=== PATIENT | female | born 1970 | race African-American/Black ===

== ENCOUNTER 2019-04-03 22:23 | Emergency (ER) | payer MEDICAID ==
[~2019-04-03] VITALS: Ht 175.3 cm; Wt 119.4 kg
[2019-04-03 23:32] LABS: Urine Bacteria NONE SEEN /hpf (None Seen); Urine Blood Negative /uL (Negative); Urine Specific Gravity 1.009 (1.001-1.035); Urine WBC 1 /hpf (0 - 5)
[2019-04-03 23:57] LABS: Basophils # (auto) 0 uL; Eosinophils # (auto) 0.1 uL; Hemoglobin 10.6 g/dL (12.2-16.2); Mean Corpuscular Hemoglobin 24.5 pg (28.0-32.0); Monocytes # (auto) 0.5 uL; Nucleated Red Blood Cells % 0.1 %
[2019-04-03 23:59] LABS: Basophils % (auto) 0.5 % (0.0-2.0); Eosinophils % (auto) 1.8 % (0.0-7.0); Hematocrit 33.4 % (36.0-46.0); Lymphocytes # (auto) 2.3 uL; Lymphocytes % (auto) 35.8 % (10.0-50.0); Mean Corpuscular Hgb Conc. 31.7 g/dL (32.0-36.0); Mean Corpuscular Volume 77.4 fL (80.0-100.0); Monocytes % (auto) 7.5 % (0.0-12.0); Neutrophils # (auto) 3.6 uL; Neutrophils % (auto) 54.4 % (37.0-80.0); Platelet Count (auto) 332 10^3/uL (140-450); Red Blood Cells 4.32 10^6/uL (4.0-5.20); Red Cell Distribution Width 15.5 % (11.8-14.3); White Blood Cell 6.5 10^3/uL (4.4-10.8)
[2019-04-04 00:13] LABS: INR 0.93 (0.9-1.15); Partial Thromboplastin Time 24.5 sec (23.64-32.05)
[2019-04-04 00:20] LABS: Albumin 3.4 g/dL (3.4-5.0); Anion Gap 7 (5-15); Blood Urea Nitrogen 8 mg/dL (7-18); Calcium 8.5 mg/dL (8.5-10.1); Carbon Dioxide 25 mmol/L (21-32); Chloride 108 mmol/L (98-107); Glucose 155 mg/dL (74-106); Potassium 3.7 mmol/L (3.5-5.1); Sodium 140 mmol/L (136-145)
[2019-04-04 00:22] LABS: Alanine Aminotransferase 33 U/L (13-56); Aspartate Aminotransferase 18 U/L (15-37); BUN/Creatinine Ratio 9.1; GFR African American 88 mL/min; GFR Non-African American 73 mL/min
[2019-04-04 00:26] LABS: Alkaline Phosphatase 70 U/L (45-117); Bilirubin, Total 0.2 mg/dL (0.2-1.0); Total Protein 7.6 g/dL (6.4-8.2)
[2019-04-04 07:00] VITALS: BP 121/68
== END 2019-04-04 09:06 | disposition home or self-care (01) ==
LOC: ER 22:23
DX: R07.89 Other chest pain (principal); R73.9 Hyperglycemia, unspecified; D50.9 Iron deficiency anemia, unspecified; F43.20 Adjustment disorder, unspecified; I10 Essential (primary) hypertension; E66.9 Obesity, unspecified; Z68.38 Body mass index [BMI] 38.0-38.9, adult; Z88.0 Allergy status to penicillin
CPT/HCPCS: 36415; 71045; 80053; 81001; 81025; 83880; 84484; 85025; 85610; 85730; 93005